=== PATIENT | female | born 1955 | race Caucasian/White ===

== ENCOUNTER → 2021-04-12 | Day surgery (SDC) | payer MEDICARE ==
[~2021-04-12] MED LIST: ASPIRIN81 MG PO; ATORVASTATIN CA40 MG PO; BIOFREEZE GEL TOP; CALCITRIOL0.25 MCG PO; CARVEDILOL3.125 MG PO; CLOPIDOGREL75 MG PO; DOCUSATE SODIU100 M1; DULCOLAX10 MG PR; FAMOTIDINE20 MG PO; HUMALOG MI100 UNIT/2 SQ; HYDROXYZIN10 MG/5 ML PO; IMODIUM A-1 MG/7.5 M PO; JARDIANCE10 MG; LACTULOSE20 GM/30 M PO; LASIX20 MG PO; LATANOPROST2.5 ML OP; LEVEMIR FL100 UNIT/1 SC; LEXAPRO20 MG PO; LOSARTAN POTASS25 MG PO; MAGNESIUM CITR100 GM; MECLIZINE HCL12.5 MG PO; MELATONIN3 MG PO; MIRALAX17 GM PO; PAIN PATCH TOP; POTASSIUM CHLO10 ME1 PO; PURE & GENTLE133 ML RC; QUETIAPINE FUMA25 MG PO; ROPINIROLE HCL1 MG PO; SENNA LAX8.6 MG PO; SIMETHICONE80 MG PO; TYLENOL # 31 EA PO; TYLENOL325 MG PO; XOPENEX0.63 MG/3 INH; ZOFRAN4 MG PO
[2021-04-12 11:10] LABS: BASOPHILS % 0.2 % (0.0-1.0); EOSINOPHILS # (AUTO) 0.1 (0.0-0.4); EOSINOPHILS % 1.6 % (0.0-6.0); HEMOGLOBIN 14.4 g/dL (12.0-16.0); LYMPHOCYTES % 24.6 % (18.0-39.1); MEAN CORPUSCULAR HEMOGLOBIN 27.9 pg (28-32); MONOCYTES # (AUTO) 0.5 (0.2-0.8); MONOCYTES % 6.3 % (4.4-11.3); NEUTROPHILS # (AUTO) 5.4 (2.1-6.9); NEUTROPHILS % 67.1 % (38.7-80.0); PLATELET COUNT 175 x10e3/uL (140-360); RED BLOOD COUNT 5.17 x10e6/uL (3.6-5.1); RED CELL DISTRIBUTION WIDTH 15.8 % (11.7-14.4)
[2021-04-12 13:40] VITALS: BP 141/73
== END | disposition home or self-care (01) ==
LOC: ENDO 09:29
PROVIDERS: ATTEND Internal Medicine Gastroenterology
DX: K22.10 Ulcer of esophagus without bleeding (principal); D12.3 Benign neoplasm of transverse colon; D12.4 Benign neoplasm of descending colon; D12.5 Benign neoplasm of sigmoid colon; K29.70 Gastritis, unspecified, without bleeding; K21.9 Gastro-esophageal reflux disease without esophagitis; K63.89 Other specified diseases of intestine; K64.8 Other hemorrhoids; R19.7 Diarrhea, unspecified; E11.9 Type 2 diabetes mellitus without complications; H40.9 Unspecified glaucoma; H54.8 Legal blindness, as defined in USA; E03.9 Hypothyroidism, unspecified; I25.810 Atherosclerosis of coronary artery bypass graft(s) without angina pectoris; I25.2 Old myocardial infarction; E11.22 Type 2 diabetes mellitus with diabetic chronic kidney disease; I13.0 Hypertensive heart and chronic kidney disease with heart failure and stage 1 through stage 4 chronic kidney disease, or unspecified chronic kidney disease; N18.4 Chronic kidney disease, stage 4 (severe); I50.9 Heart failure, unspecified; J45.909 Unspecified asthma, uncomplicated; E78.5 Hyperlipidemia, unspecified; Z88.6 Allergy status to analgesic agent; Z01.812 Encounter for preprocedural laboratory examination; Z20.822 Contact with and (suspected) exposure to COVID-19; Z79.4 Long term (current) use of insulin; Z79.82 Long term (current) use of aspirin; Z79.02 Long term (current) use of antithrombotics/antiplatelets; Z86.16 Personal history of COVID-19; Z68.36 Body mass index [BMI] 36.0-36.9, adult; Z95.1 Presence of aortocoronary bypass graft
CPT/HCPCS: 36415; 43239; 43450; 45384; 45385; 82948; 85025; C9113; U0002